=== PATIENT | male | born 1990 | race Hispanic/Latino ===

== ENCOUNTER → 2021-12-23 13:08 | Outpatient (ROUT) | payer OTHER, SELFPAY ==
[2021-12-23 14:10] LABS: COVID-19 CEPHEID PCR (VTM/NP) Negative (Negative)
== END ==
PROVIDERS: Visit Provider Otolaryngology
DX: J98.8 Other specified respiratory disorders (principal); R06.83 Snoring; J34.89 Other specified disorders of nose and nasal sinuses; J34.2 Deviated nasal septum; Z20.822 Contact with and (suspected) exposure to COVID-19
CPT/HCPCS: U0003; U0005

== ENCOUNTER 2021-12-25 10:49 | Day surgery (SDC) | payer OTHER, SELFPAY ==
[2021-12-25] VITALS (9 sets, daily range): BP systolic 118–159; BP diastolic 67–95; PULSE 68–95; RESP 12–18; TEMP 36.3–36.9; O2SAT 96–99; BMI 32.3
[2021-12-25] MEDS: OXYMETAZOLINE NASAL SPRAY 15 ML 2 SPRAYS NASAL (11:10)
--- NOTE | 2021-12-25 11:20 | P.HP_ITS ---
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 No interval health changes since last visit, wishes to proceed. No recent cough, cold, or fever. Patient History Family & Social History Social History: household members spouse Tobacco & Substance use: Smoking Status Never smoker alcohol intake frequency holiday/special occasion Substance Use Type does not use Meds Home Medications and Allergies Home Medications Medication Instructions Recorded Confirmed Type No Known Home Medications 12/25/21 12/25/21 History Allergies Allergy/AdvReac Type Severity Reaction Status Date / Time No Known Drug Allergies Allergy Verified 12/25/21 11:11 Review of Systems Review of Systems Narrative: Negative except as listed in the HPI Exam Vital Signs (past 8 hours): - 12/25/21 11:12 Temperature 98.4 F Pulse Rate 68 Respiratory Rate 16 Blood Pressure 142/95 H Pulse Oximetry 97 Oxygen Delivery Method Room Air Oxygen Delivery Method Room Air Narrative Exam Narrative: Well-developed well-nourished male in no acute distress heart regular rate and rhythm without murmur lungs clear to auscultation bilaterally Assessment & Plan Assessment & Plan narrative: Assessment: 1. Nasal airway obstruction 2. Septal deviation 3. Inferior turbinate hypertrophy 4. Respiratory obstruction Plan: Following discussion of the material risks benefits complications and alternatives, the patient elected to proceed septoplasty and inferior turbinate reduction as outpatient. Time Spent With Patient Critical Care time: I spent a total of [] minutes of critical care time on this patient's care today; this time is exclusive of procedural time.
--- NOTE | 2021-12-25 11:20 | PM.PREOP ---
Pre-operative Note Interval Note History & Physical reviewed/Exam performed by Physician: Yes Changes to H&P: No
--- NOTE | 2021-12-25 11:22 | P.OP_ITS ---
Operative Date/Time/Diagnoses Date of procedure: 12/25/21 Time of procedure: 14:52 Pre-op diagnosis: Nasal airway obstruction, septal deviation, inferior turbinate hypertrophy Post-op diagnosis: same Procedure & Clinicians Procedure: 1. Septoplasty 2. Bilateral inferior turbinate reduction via intramural cautery Same procedure as scheduled: Yes Indications: 31-year-old male with the above diagnoses incompletely managed with medical therapy presents for the above procedures. Following discussion of the material risks benefits complications and alternatives, he elected to proceed. Surgeon: Roland Merida Click Yes if Unassisted: Yes Anesthesia Type: General and Local Operative Notes Findings: 3+ right septal deviation with severe bony and cartilagenous spur, spur beginning at the caudal septum with twisted quadrilateral cartilage, right flap perforations but left intact, deviated dorsal strut remains, moderate to poor tip support before surgery, moderate at completion. left greater than right inferior turbinate hypertrophy Estimated Blood Loss (mL): 100 Procedure in detail: Following identification and confirmation of consent as well as preoperative Afrin nasal spray, the patient was brought to the operating room suite and placed in the supine position. General endotracheal anesthesia was administered. I infiltrated the septum widely bilaterally with 1% lidocaine 1 100,000 epinephrine followed by temporary packing with cotton with Afrin and 4% lidocaine. Following sterile prep and drape, the packing was removed and I performed a right monet-transfixion incision, elevated the right mucoperichondrial and mucoperiosteal flap, difficult due to the large and sharp extensive spur. I disarticulated near the bony/cartilaginous junction and elevated the left mucoperiosteal flap. Deviated portions of the perpendicular plate of the ethmoid and vomer were resected. The residual quadrilateral cartilage was further straightened by trimming it inferiorly as well as reducing the maxillary crest which included most of the large spur. A 2 mm strip of cartilage paralleling the residual 1 cm dorsal strut was resected to further straighten the quadrilateral cartilage, the caudal septum was left intact. The hemitransfixion incision was closed with interrupted 5 0 chromic followed by a running 4 0 plain gut mattress suture to reapproximate the septal flaps. At case completion, 20/1000th of an inch silastic splints were placed bilaterally, sutured anteriorly with a single 4 0 nylon. The head of each inferior turbinate had been previously infiltrated with additional local anesthetic and a 25 gauge spinal needle was used to impale the length of the turbinate, with cautery on a setting of 15 activated on slow withdrawal over 2 passes. The turbinates were then outfractured. The procedure completed, sponge and needle counts were correct and the patient was extubated in the operating room and taken to recovery room in stable condition without known complication. Complications: none Post-operative Condition: stable Disposition: same day surgery Plan for aftercare: Nasal saline every hour while awake, begin irrigations t.i.d. tomorrow if scottie ed. Polysporin to the nostrils at all times, Tylenol alternating with Advil for pain control, oxycodone for breakthrough pain. Elevate head of bed, no nose blowing, no straining for 2 weeks. Ice directly under the nose on the upper lip has tolerated 24-48 hours at a minimum. Follow-up in 1 week for nasal splint removal.
[2021-12-25] MEDS: LACTATED RINGERS 1,000 ML 42 ML IV (11:23)
--- NOTE | 2021-12-25 13:33 | SUR.OPER ---
Supine on padded OR bed, head on pillow, arms padded and tucked at sides, legs uncrossed, safety belt at thigh, tape over blanket over lower legs .
[2021-12-25] MEDS: LIDOCAINE 1% W/EPI 20 ML INJ (13:50)
[2021-12-25] MEDS: LIDOCAINE 4% SOLN 50 ML 20 ML TOP (14:26)
[2021-12-25] MEDS: BACITRACIN OINT 0.9 GM PCKT 1 APPLIC TOP (14:27)
[2021-12-25] MEDS: OXYCODONE/ACETAMINOPHEN 5/325 TABLET 1 TAB PO (15:38)
--- NOTE | 2021-12-25 16:16 | SUR.PHASEII ---
Addendum entered by Dinah Vasquez R.N. 12/25/21 17:47: 1715: Bleeding has improved significantly, still oozing slightly but only scant amt on dressing. Dr. Merida assessed pt and discussed post op plan. This machine sign writer spoke with patient and spouse extensively about what to expect and shopping list given for items needed for recovery. Both reported understood the instructions and comfortable going home at this time. Extra gauze and masks given to make nose boat dressing for home. 1730: IV DC'd intact, dressing applied. Pt voided. Left unit via w/c with this RN's assist to main entrance where was waiting to transport pt home. Verified spouse had no further questions. Patient to follow-up to have splints removed in 1 week. Original Note: 1600: Received pt from PACU with continuos oozing from bilat nares. Replaced second dressing and notified Dr. Merida. Orders received. Updated spouse.
[2021-12-25] MEDS: fentaNYL 100 MCG/2 ML INJ IV (16:35)
[2021-12-25] MEDS: ONDANSETRON 4 MG/2 ML INJ IV (16:36)
== END 2021-12-25 17:30 | disposition home or self-care (01) ==
PROVIDERS: Referring Provider Otolaryngology; Visit Provider Otolaryngology
PROC: (CPT 30520; principal; 2021-12-25 12:15)
DX: J34.2 Deviated nasal septum (principal); J34.89 Other specified disorders of nose and nasal sinuses; J34.3 Hypertrophy of nasal turbinates
CPT/HCPCS: 30520; 30802; A9270; J2250; J2405; J2704; J3010